=== PATIENT | female | born 1990 | race Caucasian/White ===

== ENCOUNTER 2018-10-25 14:36 | Emergency (ER) | payer SELFPAY ==
[2018-10-25] MEDS ORDERED: NORMAL SALINE 1000 ML 1,000 ML IV ONE (15:06)
[2018-10-25] MEDS ORDERED: ONDANSETRON HCL INJ/PF 4 MG/2 ML SDV IV ONE (15:07)
--- NOTE | 2018-10-25 15:11 | ER Document Report ---
ED Medical Screen (RME) - General Chief Complaint: Abdominal Pain Stated Complaint: BACK PAIN Time Seen by Provider: 10/25/18 15:05 Mode of Arrival: Ambulatory Information source: Patient Notes: 28-year-old female presented to ED for complaint of abdominal pain and cramping x2 days. She states it also hurts to her back and she has been vomiting x2 days. She states every time she tries to eat she vomits. Is alert oriented respirations regular and unlabored speaking in full sentences. She states she does have a thyroid problem and I am problems with migraines. She also smokes half pack a day drinks alcohol every 1 to 2 weeks and does not do any drugs. 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 I have greeted and performed a rapid initial assessment of this patient. A comprehensive ED assessment and evaluation of the patient, analysis of test results and completion of medical decision making process will be conducted by an additional ED providers. TRAVEL OUTSIDE OF THE [place] IN LAST 30 DAYS: No - Related Data Allergies/Adverse Reactions: cinnamon Allergy (Verified 10/25/18 14:38) clonazepam [From Klonopin] Allergy (Verified 10/25/18 14:38) Penicillins Allergy (Verified 10/25/18 14:38) Physical Exam - Vital signs Vitals: Temp Pulse Resp BP Pulse Ox 98.1 F 100 18 135/70 H 96 10/25/18 14:40 10/25/18 14:40 10/25/18 14:40 10/25/18 14:40 10/25/18 14:40 Course - Vital Signs Vital signs: Temp Pulse Resp BP Pulse Ox 98.1 F 100 18 135/70 H 96 10/25/18 14:40 10/25/18 14:40 10/25/18 14:40 10/25/18 14:40 10/25/18 14:40
[2018-10-25] MEDS ORDERED: ONDANSETRON HCL INJ/PF 4 MG/2 ML SDV ONE (15:30)
[2018-10-25] MEDS ORDERED: MORPHINE SULFATE 10 MG/ML INJ ONE ×2 (15:31→16:25)
[2018-10-25 15:35] LABS: ABSOLUTE LYMPHOCYTES (AUTO) 1.9 10^3/uL (0.5-4.7); ABSOLUTE MONOCYTES (AUTO) 0.5 10^3/uL (0.1-1.4); ABSOLUTE NEUT (AUTO) 4.7 10^3/uL (1.7-8.2); BASOPHILS % (AUTO) 0.5 % (0-2); EOSINOPHILS % (AUTO) 0.5 % (0-6); HEMATOCRIT 40.3 % (36.0-47.0); HEMOGLOBIN 13.4 g/dL (12.0-15.5); LYMPHOCYTES % (AUTO) 26.7 % (13-45); MEAN CORPUSCULAR HGB CONC 33.3 g/dL (32.0-36.0); MEAN CORPUSCULAR VOLUME 90 fl (80-97); MONOCYTES % (AUTO) 6.7 % (3-13); PLATELET COUNT 226 10^3/uL (150-450); RED BLOOD COUNT 4.48 10^6/uL (3.72-5.28); RED CELL DISTRIBUTION WIDTH 14.5 % (11.5-14.0); SEGMENTED NEUTROPHILS % (AUTO) 65.6 % (42-78); TOTAL CELLS COUNTED % (AUTO) 100 %; WHITE BLOOD COUNT 7.2 10^3/uL (4.0-10.5)
[2018-10-25 15:37] LABS: APPEARANCE,URINE SLIGHTLY-CLOUDY; BILIRUBIN,URINE NEGATIVE (NEGATIVE); COLOR,URINE YELLOW; GLUCOSE, URINE NEGATIVE (NEGATIVE); KETONES,URINE NEGATIVE (NEGATIVE); LEUKOCYTE ESTERASE,URINE TRACE (NEGATIVE); NITRITE,URINE NEGATIVE (NEGATIVE); PROTEIN,URINE NEGATIVE (NEGATIVE); URINE SPECIFIC GRAVITY 1.028; UROBILINOGEN,URINE NEGATIVE mg/dL (<2.0)
[2018-10-25 15:45] LABS: ALBUMIN 4.6 g/dL (3.5-5.0); ALKALINE PHOSPHATASE 81 U/L (38-126); ANION GAP 10 (5-19); ASPARTATE AMINO TRANSFERASE 25 U/L (14-36); BILIRUBIN,DIRECT 0.4 mg/dL (0.0-0.4); BILIRUBIN,TOTAL 0.5 mg/dL (0.2-1.3); BLOOD UREA NITROGEN 13 mg/dL (7-20); CALCIUM 9.7 mg/dL (8.4-10.2); CARBON DIOXIDE 26 mmol/L (22-30); CHLORIDE 105 mmol/L (98-107); GLUCOSE 92 mg/dL (75-110); POTASSIUM 4.2 mmol/L (3.6-5.0); TOTAL PROTEIN 7.7 g/dL (6.3-8.2)
--- NOTE | 2018-10-25 15:52 | ER Document Report ---
ED GI/ - General Chief Complaint: Abdominal Pain Stated Complaint: BACK PAIN Time Seen by Provider: 10/25/18 15:05 Mode of Arrival: Ambulatory Notes: 28-year-old female with hypothyroidism and history of migraine headaches presents to the emergency department for chief complaint of abdominal pain and cramping for 2 days. She states the pain feels like "someone is ripping out my uterus" and radiates to her back. She states every time she tries to eat she is nauseated and vomits. Patient states that the pain is constant. Patient denies any recent illness, fevers or chills. Patient denies any acute shortness of breath or chest pain, denies any upper abdominal pain, vomiting/diarrhea/constipation, denies any urinary symptoms, denies any abnormal vaginal discharge or vaginal bleeding. Patient states she works at a [employer] company. No other complaints TRAVEL OUTSIDE OF THE [place] IN LAST 30 DAYS: No - Related Data Allergies/Adverse Reactions: cinnamon Allergy (Verified 10/25/18 14:38) clonazepam [From Klonopin] Allergy (Verified 10/25/18 14:38) Penicillins Allergy (Verified 10/25/18 14:38) Past Medical History - General Information source: Patient - Social History Smoking Status: Current Every Day Smoker Frequency of alcohol use: Heavy Drug Abuse: None Family History: None Patient has suicidal ideation: No Patient has homicidal ideation: No Review of Systems - Review of Systems Constitutional: See HPI EENT: No symptoms reported Cardiovascular: See HPI Respiratory: See HPI Gastrointestinal: See HPI Genitourinary: See HPI Female Genitourinary: See HPI Musculoskeletal: See HPI Skin: No symptoms reported Hematologic/Lymphatic: No symptoms reported Neurological/Psychological: No symptoms reported Physical Exam - Vital signs Vitals: Temp Pulse Resp BP Pulse Ox 98.1 F 100 18 135/70 H 96 10/25/18 14:40 10/25/18 14:40 10/25/18 14:40 10/25/18 14:40 10/25/18 14:40 - Notes Notes: PHYSICAL EXAMINATION: Reviewed vital signs and charting by RN GENERAL: Alert, interacts well. No acute distress. HEAD: Normocephalic, atraumatic. EYES: Pupils equal and round. Extraocular movements intact. ENT: Oral mucosa moist, tongue midline. NECK: Full range of motion. Trachea midline. LUNGS: Clear to auscultation bilaterally, no wheezes, rales, or rhonchi. No respiratory distress. HEART: Regular rate and rhythm. No murmur ABDOMEN: soft, referred pain to the suprapubic area when palpating the right upper quadrant. No distention. Bowel sounds present EXTREMITIES: Moves all 4 extremities spontaneously. No edema, No cyanosis. PSYCH: Normal affect, normal mood. SKIN: Warm, dry, normal turgor. No rashes or lesions noted. Course - Re-evaluation Re-evalutation: 10/25/18 17:41 Patient is overall well-appearing and appears to be in mild distress with some suprapubic abdominal pain. Limits. A transvaginal ultrasound was completed which did show some fluid in the cul-de-sac, unclear if this represents a ruptured ovarian cyst or any other abnormal finding. 10/25/18 17:55 I did discuss with patient findings she does have a history of ovarian cysts with the same pain pattern but she said it is worse this time. This is all very reassuring and I do not feel there is any GI pathology and it most likely represents a ruptured cyst. Plan is to wait for patient's TSH to results, if it is abnormal I will give her a dose Synthroid and give her a 30-day supply of Synthroid. She takes 100 mcg daily. 10/25/18 18:53 Patient's TSH was 6.15, mildly elevated. Because patient knows her dosing has been on it long-term I am comfortable giving her a dose here and a one-month prescription until she can establish primary care. At this time her vital signs are within normal limits, there is no concerning findings in her work-up, and she is stable for discharge. - Vital Signs Vital signs: Temp Pulse Resp BP Pulse Ox 98.1 F 100 18 135/70 H 96 10/25/18 14:40 10/25/18 14:40 10/25/18 14:40 10/25/18 14:40 10/25/18 14:40 - Laboratory Result Diagrams: 10/25/18 15:15 10/25/18 15:15 Laboratory results interpreted by me: 10/25/18 10/25/18 10/25/18 15:15 15:15 15:15 RDW 14.5 H TSH 6.15 H Ur Leukocyte Esterase TRACE H Urine Ascorbic Acid 40 H Discharge - Discharge Clinical Impression: Elevated TSH Abdominal pain Qualifiers: Abdominal location: lower abdomen, unspecified Qualified Code(s): R10.30 - Lower abdominal pain, unspecified Condition: Good Disposition: HOME, SELF-CARE Instructions: Abdominal Pain ([facility]) Additional Instructions: You were seen in the emergency department this afternoon for abdominal pain. The ultrasound showed some free fluid in what is called your cul-de-sac which could represent a ruptured ovarian cyst. I have given you a short course of pain medication to help bridge you during this acute phase. Also, your TSH was mildly elevated and I have given you a one-month supply of your. I am basing this on your known dose and the fact that you are unable to get it filled. Please follow-up with your primary doctor to manage this condition as this is not something we managed in the emergency department. Please return to the emergency department if you develop intractable abdominal pain, intractable nausea/vomiting/diarrhea, bloody vomit or bloody diarrhea, or you have any other concerning symptoms. Prescriptions: Levothyroxine Sodium 100 mcg PO DAILY #30 tablet
[2018-10-25] MEDS ORDERED: ACETAMINOPHEN 325 MG TABLET PO ONE (16:03)
[2018-10-25] MEDS ORDERED: ACETAMINOPHEN 325 MG TABLET ONE (16:06)
[2018-10-25] MEDS ORDERED: MORPHINE SULFATE 10 MG/ML INJ IV ONE (16:19)
--- NOTE | 2018-10-25 17:33 | RADIOLOGY REPORT (SQ) ---
EXAM DESCRIPTION: U/S NON OB PEL TV W/DOPPLER COMPLETED DATE/TIME: 10/25/2018 5:16 pm REASON FOR STUDY: pelvic pain COMPARISON: None. TECHNIQUE: Dynamic and static grayscale images acquired of the pelvis via transvaginal approach and recorded on PACS. Additional selected color Doppler and spectral images recorded. LIMITATIONS: None. FINDINGS: UTERUS: Contour normal. No mass. ENDOMETRIAL STRIPE: No focal or generalized thickening. No masses. CERVIX: No nabothian cysts. RIGHT OVARY AND DOPPLER: Normal size. No worrisome masses. Normal arterial vascular flow without evid ence for torsion. LEFT OVARY AND DOPPLER: Normal size. No worrisome masses. Normal arterial vascular flow without evide nce for torsion. FREE FLUID: There is free fluid in the posterior cul-de-sac. OTHER: No other significant finding. MEASUREMENTS: UTERUS: 7.9 x 4.9 x 3.8 cm. ENDOMETRIAL STRIPE: 4 mm. RIGHT OVARY: 2.1 x 3.1 x 3.5 cm. LEFT OVARY: 2.3 x 2.4 x 2.6 cm. IMPRESSION: The study is normal. There is some free fluid in the posterior cul-de-sac. TECHNICAL DOCUMENTATION: JOB ID: [id number] [employer]- All Rights Reserved Rev-07/09 Reading location - IP/workstation name: [email or web address]
[2018-10-25] MEDS ORDERED: LEVOTHYROXINE SODIUM 0.1 MG TABLET PO ONE (18:50)
[2018-10-25 19:09] VITALS: BP 130/64
== END 2018-10-25 19:08 | disposition home or self-care (01) ==
LOC: ER 14:36
DX: R10.30 Lower abdominal pain, unspecified (principal); R94.6 Abnormal results of thyroid function studies; F17.200 Nicotine dependence, unspecified, uncomplicated; Z88.0 Allergy status to penicillin
CPT/HCPCS: 99284; 96361; 96374; 96375; 36415; 83690; 84443; 84703; 85025; 80053; 81001; 76830; 93976; J2270; J2405; J7030

== ENCOUNTER 2018-10-26 05:56 | Emergency (ER) | payer SELFPAY ==
--- NOTE | 2018-10-26 06:19 | ER Document Report ---
HPI - HPI Time Seen by Provider: 10/26/18 06:09 Pain Level: 1 Context: Patient is a 28-year-old female that comes to the emergency department for chief complaint of a bug in her left ear. She states that she felt a crawling while she was in bed earlier tonight. She states she felt it moving around. She comes by EMS. She did not put anything in her ear. She denies any current symptoms, she states she does not feel the bug moving at this time. She denies any pain, nausea, or any other complaints. - EENT EENT: REPORTS: Ear Pain - bug in left ear - REPRODUCTIVE Reproductive: DENIES: : Past Medical History - General Information source: Patient - Social History Smoking Status: Never Smoker Drug Abuse: None Lives with: Family Family History: None Patient has suicidal ideation: No Patient has homicidal ideation: No Pulmonary Medical History: Reports: Hx Asthma Neurological Medical History: Reports: Hx Migraine Renal/ Medical History: Denies: Hx Peritoneal Dialysis Past Surgical History: Reports: Hx Oral Surgery - [place] teeth - Immunizations Immunizations up to date: Yes Hx Diphtheria, Pertussis, Tetanus Vaccination: Yes Vertical Provider Document - CONSTITUTIONAL General Appearance: WD/WN, No Apparent Distress - INFECTION CONTROL TRAVEL OUTSIDE OF THE [place] IN LAST 30 DAYS: No - HEENT HEENT: Atraumatic, Normal ENT Exam - Nasal, sinuses, oral pharyngeal exam unremarkable. Both ears are clear with normal tympanic membranes and normal ear canals. No evidence of foreign body., Normocephalic - NECK Neck: Normal Inspection - RESPIRATORY Respiratory: Breath Sounds Normal, No Respiratory Distress - CARDIOVASCULAR Cardiovascular: Regular Rate, Regular Rhythm - GI/ABDOMEN Gastrointestinal: Abdomen Soft, Abdomen Non-Tender - BACK Back: Normal Inspection - MUSCULOSKELETAL/EXTREMETIES Musculoskeletal/Extremeties: MAEW, FROM, Non-Tender - NEURO Level of Consciousness: Awake, Alert, Appropriate Motor/Sensory: No Motor Deficit, No Sensory Deficit - DERM Integumentary: Warm, Dry, No Rash Course - Re-evaluation Re-evalutation: I do not see an insect or any other foreign body in patient's ear. Patient states she thinks it crawled out. We did place isopropyl alcohol just in case, ear was flushed, I still do not see foreign body or abnormality on recheck. Patient was satisfied with this. Stable and asymptomatic at time of discharge. Discharge - Discharge Clinical Impression: Foreign body in left ear Qualifiers: Encounter type: initial encounter Qualified Code(s): T16.2XXA - Foreign body in left ear, initial encounter Condition: Stable Disposition: HOME, SELF-CARE Additional Instructions: No foreign body is seen in the ear at this time. This is most likely because the insect crawled out or it is very tiny. It either left or has been killed and will come out in the bath at some time in the future. Close primary care. Return for any concerning symptoms including pain, nausea, vomiting, severe headache, or any other concerning symptoms.
[2018-10-26 06:28] VITALS: BP 100/57
== END 2018-10-26 06:30 | disposition home or self-care (01) ==
LOC: ER 05:56
DX: T16.2XXA Foreign body in left ear, initial encounter (principal); X58.XXXA Exposure to other specified factors, initial encounter; J45.909 Unspecified asthma, uncomplicated
CPT/HCPCS: 99283

== ENCOUNTER 2018-12-09 11:32 | Emergency (ER) | payer SELFPAY ==
--- NOTE | 2018-12-09 11:40 | ER Document Report ---
ED Medical Screen (RME) - General Chief Complaint: Pelvic Pain Stated Complaint: ABDOMINAL PAIN Time Seen by Provider: 12/09/18 11:37 Mode of Arrival: Ambulatory Information source: Patient Notes: 28-year-old female presents to ED for complaint of constant pelvic pain. She states it feels like there is a constant pinching her uterus. She states is been going on for 2 days. She states her last menstrual period was 1-1/2 weeks ago. She states she has been having vaginal spotting but no actual bleeding and no discharge. She states she is having some nausea but no vomiting. I have greeted and performed a rapid initial assessment of this patient. A comprehensive ED assessment and evaluation of the patient, analysis of test results and completion of medical decision making process will be conducted by an additional ED providers. TRAVEL OUTSIDE OF THE [place] IN LAST 30 DAYS: No - Related Data Allergies/Adverse Reactions: cinnamon Allergy (Verified 10/25/18 14:38) clonazepam [From Klonopin] Allergy (Verified 10/25/18 14:38) Penicillins Allergy (Verified 10/25/18 14:38) Past Medical History Pulmonary Medical History: Reports: Hx Asthma Neurological Medical History: Reports: Hx Migraine Renal/ Medical History: Denies: Hx Peritoneal Dialysis Past Surgical History: Reports: Hx Oral Surgery - [place] teeth - Immunizations Immunizations up to date: Yes Hx Diphtheria, Pertussis, Tetanus Vaccination: Yes
[2018-12-09 12:08] LABS: APPEARANCE,URINE CLEAR; BILIRUBIN,URINE NEGATIVE (NEGATIVE); COLOR,URINE STRAW; GLUCOSE, URINE NEGATIVE (NEGATIVE); KETONES,URINE NEGATIVE (NEGATIVE); PROTEIN,URINE NEGATIVE (NEGATIVE); UROBILINOGEN,URINE NEGATIVE mg/dL (<2.0)
[2018-12-09 12:09] LABS: ABSOLUTE LYMPHOCYTES (AUTO) 1.8 10^3/uL (0.5-4.7); ABSOLUTE MONOCYTES (AUTO) 0.4 10^3/uL (0.1-1.4); ABSOLUTE NEUT (AUTO) 3.4 10^3/uL (1.7-8.2); BASOPHILS % (AUTO) 0.4 % (0-2); EOSINOPHILS % (AUTO) 0.4 % (0-6); HEMATOCRIT 37.7 % (36.0-47.0); HEMOGLOBIN 12.4 g/dL (12.0-15.5); LYMPHOCYTES % (AUTO) 31.5 % (13-45); MEAN CORPUSCULAR HEMOGLOBIN 29.6 pg (27.0-33.4); MEAN CORPUSCULAR VOLUME 90 fl (80-97); MONOCYTES % (AUTO) 6.9 % (3-13); PLATELET COUNT 222 10^3/uL (150-450); RED CELL DISTRIBUTION WIDTH 13.3 % (11.5-14.0); SEGMENTED NEUTROPHILS % (AUTO) 60.8 % (42-78); TOTAL CELLS COUNTED % (AUTO) 100 %; WHITE BLOOD COUNT 5.6 10^3/uL (4.0-10.5)
[2018-12-09 12:30] LABS: ALBUMIN 4.4 g/dL (3.5-5.0); ALKALINE PHOSPHATASE 50 U/L (38-126); ANION GAP 9 (5-19); ASPARTATE AMINO TRANSFERASE 18 U/L (14-36); BILIRUBIN,DIRECT 0.1 mg/dL (0.0-0.4); BILIRUBIN,TOTAL 0.2 mg/dL (0.2-1.3); BLOOD UREA NITROGEN 15 mg/dL (7-20); CALCIUM 9.2 mg/dL (8.4-10.2); CARBON DIOXIDE 25 mmol/L (22-30); CHLORIDE 106 mmol/L (98-107); GLUCOSE 84 mg/dL (75-110); POTASSIUM 4.4 mmol/L (3.6-5.0); TOTAL PROTEIN 7.5 g/dL (6.3-8.2)
--- NOTE | 2018-12-09 12:55 | RADIOLOGY REPORT (SQ) ---
EXAM DESCRIPTION: U/S NON-OB PELVIS TV W/O DOP COMPLETED DATE/TIME: 12/09/2018 12:37 pm REASON FOR STUDY: constant pinching to uterus COMPARISON: 10/25/2018. TECHNIQUE: Dynamic and static grayscale images acquired of the pelvis via transvaginal approach and recorded on PACS. Additional selected color Doppler and spectral images recorded. LIMITATIONS: None. FINDINGS: UTERUS: Contour normal. No mass. ENDOMETRIAL STRIPE: No focal or generalized thickening. No masses. CERVIX: No nabothian cysts. RIGHT OVARY AND DOPPLER: Normal size. No worrisome masses. Normal arterial vascular flow without evid ence for torsion. LEFT OVARY AND DOPPLER: Normal size. No worrisome masses. Normal arterial vascular flow without evide nce for torsion. FREE FLUID: Small amount of fluid in the posterior cul-de-sac. OTHER: No other significant finding. MEASUREMENTS: UTERUS: 3.7 x 4.9 x 8.7 cm. ENDOMETRIAL STRIPE: 3 mm. RIGHT OVARY: 2.0 x 2.5 x 3.3 cm. LEFT OVARY: 1.9 x 2.2 x 3.4 cm. IMPRESSION: NORMAL TRANSVAGINAL PELVIC ULTRASOUND. TECHNICAL DOCUMENTATION: JOB ID: [id number] [employer]- All Rights Reserved Reading location - IP/workstation name: [email or web address]
--- NOTE | 2018-12-09 13:11 | ER Document Report ---
Entered by TATA BECERRA SCRIBE 12/09/18 1211 Acting as scribe for:ROBBY SUTHERLAND MD ED GI/ - General Chief Complaint: Pelvic Pain Stated Complaint: ABDOMINAL PAIN Time Seen by Provider: 12/09/18 11:37 Mode of Arrival: Ambulatory Information source: Patient Notes: 28 year old female that presents to the emergency department today with complaints of lower abdominal pain "in her uterus". Patient denies any radiation of her pain. Patient states she is having vaginal spotting today. 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 Patient denies any vaginal discharge or fevers. TRAVEL OUTSIDE OF THE [place] IN LAST 30 DAYS: No - Related Data Allergies/Adverse Reactions: cinnamon Allergy (Verified 10/25/18 14:38) clonazepam [From Klonopin] Allergy (Verified 10/25/18 14:38) Penicillins Allergy (Verified 10/25/18 14:38) Past Medical History - General Information source: Patient - Social History Smoking Status: Current Every Day Smoker Cigarette use (# per day): Yes Chew tobacco use (# tins/day): No Smoking Education Provided: No Frequency of alcohol use: None Drug Abuse: None Family History: None Patient has suicidal ideation: No Patient has homicidal ideation: No Pulmonary Medical History: Reports: Hx Asthma Neurological Medical History: Reports: Hx Migraine Endocrine Medical History: Reports: Hx Hypothyroidism Past Surgical History: Reports: Hx Oral Surgery - [place] teeth - Immunizations Immunizations up to date: Yes Hx Diphtheria, Pertussis, Tetanus Vaccination: Yes Review of Systems - Review of Systems Constitutional: denies: Fever EENT: No symptoms reported Cardiovascular: No symptoms reported Respiratory: No symptoms reported Gastrointestinal: See HPI, Abdominal pain, Other - Vaginal spotting Genitourinary: denies: Discharge Female Genitourinary: No symptoms reported Musculoskeletal: No symptoms reported Skin: No symptoms reported Hematologic/Lymphatic: No symptoms reported Neurological/Psychological: No symptoms reported -: Yes All other systems reviewed and negative Physical Exam - Vital signs Vitals: Temp Pulse Resp BP Pulse Ox 97.6 F 80 16 119/62 98 12/09/18 11:38 12/09/18 11:38 12/09/18 11:38 12/09/18 11:38 12/09/18 11:38 - Notes Notes: Physical Exam: General: Alert, appears well. HEENT: Normocephalic. Atraumatic. PERRL. Extraocular movements intact. Oropharynx clear. Neck: Supple. Non-tender. Respiratory: No respiratory distress. Clear and equal breath sounds bilaterally. Cardiovascular: Regular rate and rhythm. Abdominal: Exquisite lower abdominal tenderness to palpation, with the most tenderness being in the suprapubic region. No distension. Normal Bowel Sounds. Back: No gross abnormalities. Extremities: Moves all four extremities. Upper extremities: Normal inspection. Normal ROM. Lower extremities: Normal inspection. No edema. Normal ROM. Neurological: Normal cognition. AAOx4. Normal speech. Psychological: Normal affect. Normal Mood. Skin: Warm. Dry. Normal color. Course - Re-evaluation Re-evalutation: 12/09/18 13:12 CBC Chem-12 and hCG are unremarkable. Urine is unremarkable. Transvaginal ultrasound is unremarkable. Pelvic exam is remarkable for exquisite uterine tenderness, cervical motion tenderness, and bilateral adnexal tenderness. There is no significant discharge noted at this time, however the patient did have a transvaginal ultrasound prior to pelvic exam. She does report that she has had pain like this in the past on pelvic exam, but it is never been treated with antibiotics. She does report a penicillin allergy, is unable to tell me if she is ever had Rocephin in the past. We will treat her with doxycycline for her PID and wait for the chlamydia gonorrhea PCR to decide if she requires coverage for gonorrhe a. - Vital Signs Vital signs: Temp Pulse Resp BP Pulse Ox 97.6 F 80 16 119/62 98 12/09/18 11:38 12/09/18 11:38 12/09/18 11:38 12/09/18 11:38 12/09/18 11:38 - Laboratory Result Diagrams: 12/09/18 11:45 12/09/18 11:45 - Diagnostic Test Radiology reviewed: Reports reviewed - Transvaginal ultrasound is unremarkable. Discharge - Discharge Clinical Impression: Pelvic pain Condition: Stable Disposition: HOME, SELF-CARE Additional Instructions: Pelvic Pain There are many causes of pain in the pelvic area. The cause could be the tubes, ovaries, uterus, intestines, appendix, pelvic muscles and connective tissue, or the urinary tract. The cause of your pelvic pain is not clear. However, it seems safe to treat you outside the hospital. If the pain sounds like a temporary problem, we sometimes wait to see if it goes away. Other patients may need additional tests, such as pelvic ultrasound or cultures. Conditions may change. Call us or come back for reexamination if any problems occur, such as: (1) Pain that becomes more severe, steady, or becomes concentrated in one specific area. Also, pain that is more severe with movement or coughing. (2) Vomiting that persists or becomes more frequent. (3) Blood in the vomitus, urine, or bowel movements. Blood in the stool may have a tarry or black appearance. (4) Shaking chills or fever greater than 100 degrees. (5) The abdomen becomes more distended or swollen. (6) Bowel movements cease. (7) Heavy vaginal bleeding. * Take the medications as prescribed. Take ibuprofen 800 mg every 8 hours for the next few days for the inflammation pain. Follow-up with [facility] next week for reevaluation and discussion of your recurring pelvic pain. RETURN TO THE EMERGENCY ROOM IF ANY NEW OR WORSENING SYMPTOMS. Prescriptions: Doxycycline Hyclate 100 mg PO BID #14 tablet. Hydrocodone/Acetaminophen [[place] 5-325 mg Tablet] 1 tab PO Q4 PRN #10 tablet PRN Reason: For Pain Referrals: [facility] [Provider Group] - Follow up in 3-5 days Scribe Attestation: 12/09/18 13:19 I personally performed the services described in the documentation, reviewed and edited the documentation which was dictated to the scribe in my presence, and it accurately records my words and actions. I personally performed the services described in the documentation, reviewed and edited the documentation which was dictated to the scribe in my presence, and it accurately records my words and actions.
[2018-12-09] MEDS ORDERED: OXYCODONE-ACETAMINOPHEN 5-325 MG TABLET PO ONE (13:13)
[2018-12-09] MEDS ORDERED: DOXYCYCLINE HYCLATE 100 MG TABLET PO ONE (13:14)
[2018-12-09 13:22] LABS: BACTERIA (WET MOUNT) 4+ BACTERIA SEEN; EPITHELIALS (WET MOUNT) 4+ EPITHELIALS SEEN; RBCS (WET MOUNT) 1+ RBCS SEEN; T.VAGINALIS (WET MOUNT) NO TRICHOMONAS SEEN; WBCS (WET MOUNT) 2+ WBCS SEEN; YEAST (WET MOUNT) NO YEAST SEEN
[2018-12-09 13:50] VITALS: BP 112/68
[2018-12-09 15:15] LABS: CHLAM PCR DETECTED (NOT DETECT)
== END 2018-12-09 13:50 | disposition home or self-care (01) ==
LOC: ER 11:32
DX: N73.9 Female pelvic inflammatory disease, unspecified (principal); R10.2 Pelvic and perineal pain; F17.210 Nicotine dependence, cigarettes, uncomplicated; J45.909 Unspecified asthma, uncomplicated; Z91.018 Allergy to other foods; Z88.8 Allergy status to other drugs, medicaments and biological substances; Z88.0 Allergy status to penicillin
CPT/HCPCS: 36415; 76830; 80053; 81001; 84703; 85025; 87210; 87491; 87591; 99284